=== PATIENT | male | born 1995 | race Caucasian/White ===

== ENCOUNTER 2016-10-12 08:09 | Emergency (ER) | payer OTHER ==
--- NOTE | 2016-10-12 09:26 | ED CLINICAL REPORT ---
Clinical Report - Physicians/Mid Levels [facility] [address] [place] [address] 10/12/2016 8:12 Patient: ADAM PITTMAN Time Seen: 08:53. Arrived- By private vehicle. Historian- patient. HISTORY OF PRESENT ILLNESS Chief Complaint: Injury to the right index finger. The injury happened yesterday. Occurred at work. The patient sustained a puncture wound. (was working yesterday using a crowbar, installing a door, hand slipped and slammed into nail, went through glove). Patient is experiencing moderate pain. Patient denies injury to the head or neck. No other injury. REVIEW OF SYSTEMS The patient sustained a laceration. He has had swelling of the right hand (moderate). He has had new onset of tingling of the right index finger (moderate). No numbness or foreign body. All systems otherwise negative, except as recorded above. PAST HISTORY See nurses notes. PROBLEMS: Gastroenteritis. Sprain. Fractured Phalanx (Finger). Dyspnea. Anxiety Reaction. Asthma. SURGERIES: Appendectomy. The patient's dominant hand is the left. Tetanus immunization status is not up-to-date. Medications: None. Allergies: No Known Drug Allergy. SOCIAL HISTORY Smoker- current status unknown. Occasional alcohol use. ADDITIONAL NOTES The nursing notes have been reviewed. PHYSICAL EXAM Vital Signs: 10/12/2016 08:32 BP: 150/89. HR: 88. RR: 16. O2 saturation: 100%. Temp: 98.3 F. Pain level now: 10. Appearance: Alert. Oriented X3. Anxious. Patient in mild distress. Head: Head atraumatic. Eyes: Eyes normal inspection. CVS: Normal heart rate and rhythm. Heart sounds normal. Pulses normal. Respiratory: No respiratory distress. Breath sounds normal. Skin: (right index finger puncture). Extremities: Tenderness present (mild swelling, no pus discharge). No warmth, drainage, lymphangitis or fluctuance. Right index finger: moderate tenderness, mild swelling and single puncture wound of the dorsal aspect and proximal phalanx. No erythema, foreign body or deformity. No limitation in movement. Soft tissue tenderness present. Neuro, Vascular and Tendons: Vascular status intact. Decreased light touch sensation over the right index finger. Motor intact. Tendon function intact. Neuro: Oriented X 3. Sensory deficit present. (mild decreased sensation to distal right index finger to light touch). LABS, X-RAYS, AND EKG Rt Hand X-ray: No fracture. Normal alignment. No bony lesion, air in the soft tissue or foreign body. Soft tissues normal. Joint spaces normal. Views: AP, lateral and oblique. Technique: good. The X-rays were interpreted contemporaneously by me. PROGRESS AND PROCEDURES Splint Application: Aluminum-foam volar splint applied to right index finger. Splint applied by tech with direct supervision by the ED physician. Reassessed extremity following splint application. Neurovascular intact. Course of Care: Minimal signs of infection now. Mild decreased sensation of entire index finger to light touch. No fracture or fb on x-ray. I have recommended hand surgery evaluation within next 24 hours. Patient/family counseled. Old medical records ordered. Disposition: Discharged. Condition: stable. CLINICAL IMPRESSION Single deep puncture wound to the right index finger. No puncture wound with foreign body present, infected puncture wound or right fingernail injury. INSTRUCTIONS Apply ice. Elevate affected areas above chest level. Wear aluminum splint until released. Limit use of your right hand until released. Do not work with right hand for three days. Do not work for three days. Warnings: COMPLICATIONS: Complications from this condition include: possible infection and possible injury to a nerve. Future problems may include infection, loss of function and pain. It is important to follow up with a physician for further evaluation and treatment. INFECTION: Watch for signs of infection (increasing heat and redness, pus-like drainage, swelling, or increased pain). Return or see your doctor if these signs occur. TETANUS: You were given a tetanus shot during your visit. Make a note for future reference. GENERAL WARNINGS: Return or contact your physician immediately if your condition worsens or changes unexpectedly, if not improving as expected, or if other problems arise. Prescription Medications: Cephalexin 500mg: take 1 tab orally every 6 hours for 7 days. No refills Bactrim DS 800 mg / 160 mg: Take 1 tablet orally every 12 hours for 7 days. Dispense fourteen (14). No refills. Substitution is permissible. OTC Medications: Acetaminophen (available over the counter): take according to label instructions. Motrin (available over the counter): take according to label instructions. Follow-up: Follow up with your doctor tomorrow. Follow up with a hand surgeon tomorrow. (Electronically signed by Hugo Faustin DO 10/13/2016 7:56)
--- NOTE | 2016-10-12 09:27 | ED NURSING NOTES ---
Clinical Report - Nurses [facility] [address] [place] [address] 10/12/2016 8:12 Patient: ADAM PITTMAN TRIAGE Triage time 08:32. Acuity: LEVEL 4. Chief Complaint: RIGHT UPPER EXTREMITY PAIN, SWELLING and REDNESS. Location of symptoms- right thumb, right 2nd finger and right 3rd finger. 08:43 10/12/16. 08:43 10/12/16. SEPSIS SCREEN: Sepsis Screen. Negative (no infection suspected/documented). MECCA COMA SCORE: Mecca Coma Scale: 15- eyes open spontaneously (4); best verbal response- oriented x 4 (5); best motor response- obeys commands (6). --08:43 Chely Burnett R.N. 08:32 10/12/16. BP: 150/89. HR: 88. RR: 16. O2 saturation: 100% on room air. Temp: 98.3 F. Pain level now: 11/12. --08:43 Chely Burnett R.N. Weight: 90.7 kg stated. Height/Length: 75 inches Per Patient. BMI: 25. Growth Chart Percentile: Weight: 91.7%. Height/Length: 97.3%. --08:39 Chely Burnett R.N. Medications None. --08:36 Chely Burnett R.N. Medication/allergy information source: the patient. --08:43 Chely Burnett R.N. Allergies No Known Drug Allergy. --08:36 Chely Burnett R.N. History Arrived by private vehicle. Historian: patient. 08:43 10/12/16. Injury occurred. This occurred last night. Occurred at work. ( was working yesterday using a crowbar, installing a door, hand slipped and slammed into nail, went through glove). 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 PAST MEDICAL HX: Tetanus immunization status is not up-to-date. Immunizations not up to date. SOCIAL HX: Current every day light tobacco smoker- less than 1/2 a pack per day. Occasional alcohol use; consumes beer occasionally. No infectious disease exposure. ABUSE ASSESSMENT: No report of abuse. FALL RISK ASSESSMENT: Fall risk assessment completed. No fall risk identified. NUTRITIONAL RISK ASSESSMENT: The nutritional risk assessment revealed no deficiencies. FUNCTIONAL ASSESSMENT: Functional assessment: no impairments noted. LEARNING NEEDS ASSESSMENT: The learning needs assessment revealed no barriers. SKIN INTEGRITY ASSESSMENT: Skin integrity risk assessment completed. No skin integrity risk identified. --08:43 Chely Burnett R.N. PROBLEMS: Gastroenteritis. Immunizations. Sprain. Fractured Phalanx (Finger). Tetanus Status. Dyspnea. Anxiety Reaction. Asthma. --08:37 Chely Burnett R.N. ADDITIONAL SURGERIES: Appendectomy. --08:38 Chely Burnett R.N. Assessment 08:43 10/12/16. --08:43 Chely Burnett R.N. Interventions 08:43 10/12/16. 08:43 10/12/16. ID band on patient. To treatment room. --08:43 Chely Burnett R.N. PHYSICAL ASSESSMENT 08:45 10/12/16. Ambulatory to room. GENERAL / NEURO / PSYCH: Oriented X 4. Appears in no acute distress. EXTREMITIES: Dorsal right hand: swelling and single puncture wound. Limited extension of the index finger (index finger with puncture wound). Right thumb: swelling. SKIN: Skin intact. Skin is warm. --08:46 Chely Burnett R.N. NURSING PROGRESS NOTES 08:46 10/12/16. The plan of care for this patient has been created. Patient gowned. Reassurance given. Two patient identifiers checked. Call light placed in reach. Side rails up x 1. Bed placed in lowest position. Brakes of bed on. Brakes of chair on. Patient ready for evaluation- chart flagged and ED physician notified. --08:46 Chely Burnett R.N. 08:54 10/12/2016 TDAP IM 0.5 mL given. (Lot#: [id number], expiration date: 06/09/2018, Mill Control Operator: sanofi pasteur). Given in the left deltoid. Allergies verified and confirmed 5 rights. Vaccine information statement provided to the patient. --08:54 Chely Burnett R.N. 08:55 10/12/16. ( X-ray completed). --08:55 Pratik Bellamy R.N. Wound cleansed. Applied dressing (Ointment applied, 2 x 2s to fingers,alum foam splint applied and and held with coban,). --09:22 Aidee Cabrales, BASSEM Tech1 09:24 10/12/2016 Ancef (CeFAZolin Sodium) IM 1 gm given. Given in the right ventral gluteus. Allergies verified and confirmed 5 rights. --09:24 Pratik Bellamy R.N. 09:40 10/12/2016 Ancef IM Response: no adverse reaction. --09:40 Pratik Bellamy R.N. DISPOSITION / DISCHARGE 09:41 10/12/16. Condition at departure: improved. The goals identified in the patient's plan of care were met. No learning barriers present. Discharge instructions provided and reviewed with the patient. Reviewed warnings. Reviewed medication(s). Treatments reviewed. Reviewed referrals (pt to see PCP tomorrow). The patient was discharged by the physician. He was discharged home and unaccompanied at time of discharge. He left the Emergency Department ambulatory and via private vehicle. Patient driving. FALL RISK ASSESSMENT: Fall risk assessment completed. No fall risk identified. --09:41 Pratik Bellamy R.N. 09:41 10/12/16. BP: 114/70. HR: 80. RR: 12. O2 saturation: 99% on room air. Temp: 98.1 F (oral). --09:41 Pratik Bellamy R.N. 09:41 10/12/16. Departure time: 09:41. --09:42 Pratik Bellamy R.N. Locked/Released at 10/12/2016 9:48 by Pratik Bellamy R.N.
--- NOTE | 2016-10-12 09:27 | ED ORDER SUMMARY ---
..... Patient: ADAM PITTMAN OrderSheet [facility] VisitID: [id number] [place] [address] 21y, M Registration Date/Time: 10/12/2016 ORDER SHEET Weight: 90.7 kg (stated) Allergies: No Known Drug Allergy GENERAL ORDERS: Hand 3 or 4V Right Urgent (08:47 10/12/2016 JSanders R.N. per protocol) (8:55 JBoardley R.N.) (Ack 8:56 LNations ER Tech1) Splint (Finger) (Left) (Index) (Aluminum Foam) (09:07 10/12/2016 Meche LIPSCOMB) (9:10 LNations ER Tech1) Dress Wounds (antibiotic oint) (09:08 10/12/2016 Meche LIPSCOMB) (9:10 LNations ER Tech1) MEDICATION ORDERS: Tdap IM 0.5 mL (per protocol) (08:48 10/12/2016 JSanders R.N. per protocol) (Ack 8:48 JSanders R.N.) (8:54 JSanders R.N.) Ancef IM 1 gm (NOW) (09:06 10/12/2016 Meche LIPSCOMB) (Ack 9:09 JBoardley R.N.) (9:24 JBoardley R.N.) IV FLUIDS: ORDER SHEET NOTES: [Electronically signed by Pratik Bellamy R.N. (09:48 10/12/2016)] [Electronically signed by Hugo Faustin DO (07:56 10/13/2016)] [Electronically locked/signed by Pratik Bellamy R.N. (09:48 10/12/2016)]
--- NOTE | 2016-10-12 09:27 | ED ORDER SUMMARY ---
..... Patient: ADAM PITTMAN OrderSheet [facility] VisitID: [id number] [place] [address] 21y, M Registration Date/Time: 10/12/2016 ORDER SHEET Weight: 90.7 kg (stated) Allergies: No Known Drug Allergy GENERAL ORDERS: Hand 3 or 4V Right Urgent (08:47 10/12/2016 JSanders R.N. per protocol) (8:55 JBoardley R.N.) (Ack 8:56 LNations ER Tech1) Splint (Finger) (Left) (Index) (Aluminum Foam) (09:07 10/12/2016 Meche LIPSCOMB) (9:10 LNations ER Tech1) Dress Wounds (antibiotic oint) (09:08 10/12/2016 Meche LIPSCOMB) (9:10 LNations ER Tech1) MEDICATION ORDERS: Tdap IM 0.5 mL (per protocol) (08:48 10/12/2016 JSanders R.N. per protocol) (Ack 8:48 JSanders R.N.) (8:54 JSanders R.N.) Ancef IM 1 gm (NOW) (09:06 10/12/2016 Meche LIPSCOMB) (Ack 9:09 JBoardley R.N.) (9:24 JBoardley R.N.) IV FLUIDS: ORDER SHEET NOTES: [Electronically signed by Pratik Bellamy R.N. (09:48 10/12/2016)] [Electronically signed by Hugo Faustin DO (07:56 10/13/2016)] [Electronically locked/signed by Pratik Bellamy R.N. (09:48 10/12/2016)]
--- NOTE | 2016-10-12 09:27 | ED NURSING NOTES ---
Clinical Report - Nurses [facility] [address] [place] [address] 10/12/2016 8:12 Patient: ADAM PITTMAN TRIAGE Triage time 08:32. Acuity: LEVEL 4. Chief Complaint: RIGHT UPPER EXTREMITY PAIN, SWELLING and REDNESS. Location of symptoms- right thumb, right 2nd finger and right 3rd finger. 08:43 10/12/16. 08:43 10/12/16. SEPSIS SCREEN: Sepsis Screen. Negative (no infection suspected/documented). MECCA COMA SCORE: Mecca Coma Scale: 15- eyes open spontaneously (4); best verbal response- oriented x 4 (5); best motor response- obeys commands (6). --08:43 Chely Burnett R.N. 08:32 10/12/16. BP: 150/89. HR: 88. RR: 16. O2 saturation: 100% on room air. Temp: 98.3 F. Pain level now: 11/12. --08:43 Chely Burnett R.N. Weight: 90.7 kg stated. Height/Length: 75 inches Per Patient. BMI: 25. Growth Chart Percentile: Weight: 91.7%. Height/Length: 97.3%. --08:39 Chely Burnett R.N. Medications None. --08:36 Chely Burnett R.N. Medication/allergy information source: the patient. --08:43 Chely Burnett R.N. Allergies No Known Drug Allergy. --08:36 Chely Burnett R.N. History Arrived by private vehicle. Historian: patient. 08:43 10/12/16. Injury occurred. This occurred last night. Occurred at work. ( was working yesterday using a crowbar, installing a door, hand slipped and slammed into nail, went through glove). 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 PAST MEDICAL HX: Tetanus immunization status is not up-to-date. Immunizations not up to date. SOCIAL HX: Current every day light tobacco smoker- less than 1/2 a pack per day. Occasional alcohol use; consumes beer occasionally. No infectious disease exposure. ABUSE ASSESSMENT: No report of abuse. FALL RISK ASSESSMENT: Fall risk assessment completed. No fall risk identified. NUTRITIONAL RISK ASSESSMENT: The nutritional risk assessment revealed no deficiencies. FUNCTIONAL ASSESSMENT: Functional assessment: no impairments noted. LEARNING NEEDS ASSESSMENT: The learning needs assessment revealed no barriers. SKIN INTEGRITY ASSESSMENT: Skin integrity risk assessment completed. No skin integrity risk identified. --08:43 Chely Burnett R.N. PROBLEMS: Gastroenteritis. Immunizations. Sprain. Fractured Phalanx (Finger). Tetanus Status. Dyspnea. Anxiety Reaction. Asthma. --08:37 Chely Burnett R.N. ADDITIONAL SURGERIES: Appendectomy. --08:38 Chely Burnett R.N. Assessment 08:43 10/12/16. --08:43 Chely Burnett R.N. Interventions 08:43 10/12/16. 08:43 10/12/16. ID band on patient. To treatment room. --08:43 Chely Burnett R.N. PHYSICAL ASSESSMENT 08:45 10/12/16. Ambulatory to room. GENERAL / NEURO / PSYCH: Oriented X 4. Appears in no acute distress. EXTREMITIES: Dorsal right hand: swelling and single puncture wound. Limited extension of the index finger (index finger with puncture wound). Right thumb: swelling. SKIN: Skin intact. Skin is warm. --08:46 Chely Burnett R.N. NURSING PROGRESS NOTES 08:46 10/12/16. The plan of care for this patient has been created. Patient gowned. Reassurance given. Two patient identifiers checked. Call light placed in reach. Side rails up x 1. Bed placed in lowest position. Brakes of bed on. Brakes of chair on. Patient ready for evaluation- chart flagged and ED physician notified. --08:46 Chely Burnett R.N. 08:54 10/12/2016 TDAP IM 0.5 mL given. (Lot#: [id number], expiration date: 06/09/2018, Tinsmith Apprentice: sanofi pasteur). Given in the left deltoid. Allergies verified and confirmed 5 rights. Vaccine information statement provided to the patient. --08:54 hCely Burnett R.N. 08:55 10/12/16. ( X-ray completed). --08:55 Pratik Bellamy R.N. Wound cleansed. Applied dressing (Ointment applied, 2 x 2s to fingers,alum foam splint applied and and held with coban,). --09:22 Aidee Cabrales, BASSEM Tech1 09:24 10/12/2016 Ancef (CeFAZolin Sodium) IM 1 gm given. Given in the right ventral gluteus. Allergies verified and confirmed 5 rights. --09:24 Pratik Bellamy R.N. 09:40 10/12/2016 Ancef IM Response: no adverse reaction. --09:40 Pratik Bellamy R.N. DISPOSITION / DISCHARGE 09:41 10/12/16. Condition at departure: improved. The goals identified in the patient's plan of care were met. No learning barriers present. Discharge instructions provided and reviewed with the patient. Reviewed warnings. Reviewed medication(s). Treatments reviewed. Reviewed referrals (pt to see PCP tomorrow). The patient was discharged by the physician. He was discharged home and unaccompanied at time of discharge. He left the Emergency Department ambulatory and via private vehicle. Patient driving. FALL RISK ASSESSMENT: Fall risk assessment completed. No fall risk identified. --09:41 Pratik Bellamy R.N. 09:41 10/12/16. BP: 114/70. HR: 80. RR: 12. O2 saturation: 99% on room air. Temp: 98.1 F (oral). --09:41 Pratik Bellamy R.N. 09:41 10/12/16. Departure time: 09:41. --09:42 Pratik Bellamy R.N. Locked/Released at 10/12/2016 9:48 by Pratik Bellamy R.N.
--- NOTE | 2016-10-12 09:29 | DIAGNOSTIC IMAGING REPORT ---
PROCEDURE: XR HAND 3 OR 4 VIEWS - RIGHT INDICATION: PAIN TECHNIQUE: Four views. COMPARISON: None. FINDINGS: No fracture or dislocation. Normal soft tissues without radiopaque foreign bodies. Mild third DIP joint degenerative changes. IMPRESSION: 1. No acute changes
--- NOTE | 2016-10-13 07:57 | ED MED RECONCILIATION SUMMARY ---
Patient: ADAM PITTMAN Medication Reconciliation Report [facility] VisitID: [id number] [address] [place] [address] 21y, M Registration Date/Time: 10/12/2016 Weight: 90.7 kg Height/Length: 75 in. BMI: 25.0 ALLERGIES: No Known Drug Allergy The patient's Home Medications are listed below: NONE. The source(s) of the original Home Medication information: patient The following Medications were given to the patient in the Emergency Department: TDAP [IM] IM 0.5 mL, administered: 10/12/2016 8:54:00 AM Ancef [IM] IM 1 gm, administered: 10/12/2016 9:24:00 AM The following Medications were prescribed to the patient: Acetaminophen (available over the counter): take according to label instructions. -- Hugo Faustin DO Motrin (available over the counter): take according to label instructions. -- Hugo Faustin DO Cephalexin 500mg: take 1 tab orally every 6 hours for 7 days. No refills -- Hugo Faustin DO Bactrim DS 800 mg / 160 mg: Take 1 tablet orally every 12 hours for 7 days. Dispense fourteen (14). No refills. Substitution is permissible. -- Hugo Faustin DO
--- NOTE | 2016-10-13 07:57 | ED MAR SUMMARY ---
..... Medication Administration Record [facility] [address] [place] [address] Patient: ADAM PITTMAN Visit ID: [id number] 21y, M Weight: 90.7 kg Height/Length: 75 in BMI: 25 ALLERGIES: No Known Drug Allergy Given 08:54 10/12/2016 Chely Burnett R.N. Medication Administered: TDAP [IM], Dose: 0.5 mL IM. Medication Ordered: Tdap IM 0.5 mL (per protocol). Given 09:24 10/12/2016 Pratik Bellamy RPeggy Medication Administered: ANCEF [IM] (CEFAZOLIN SODIUM), Dose: 1 gm IM. Medication Ordered: Ancef IM 1 gm (NOW).
--- NOTE | 2016-10-13 07:57 | ED MED RECONCILIATION SUMMARY ---
Patient: ADAM PITTMAN Medication Reconciliation Report [facility] VisitID: [id number] [address] [place] [address] 21y, M Registration Date/Time: 10/12/2016 Weight: 90.7 kg Height/Length: 75 in. BMI: 25.0 ALLERGIES: No Known Drug Allergy The patient's Home Medications are listed below: NONE. The source(s) of the original Home Medication information: patient The following Medications were given to the patient in the Emergency Department: TDAP [IM] IM 0.5 mL, administered: 10/12/2016 8:54:00 AM Ancef [IM] IM 1 gm, administered: 10/12/2016 9:24:00 AM The following Medications were prescribed to the patient: Acetaminophen (available over the counter): take according to label instructions. -- Hugo Faustin DO Motrin (available over the counter): take according to label instructions. -- Hugo Faustin DO Cephalexin 500mg: take 1 tab orally every 6 hours for 7 days. No refills -- Hugo Faustin DO Bactrim DS 800 mg / 160 mg: Take 1 tablet orally every 12 hours for 7 days. Dispense fourteen (14). No refills. Substitution is permissible. -- Hugo Faustin DO
--- NOTE | 2016-10-13 07:57 | ED DISCHARGE INSTRUCTIONS ---
Patient: ADAM PITTMAN General Instructions [facility] VisitID: [id number] [place] [address] 21y, M Registration Date/Time: 10/12/2016 Single deep puncture wound to the right index finger. No puncture wound with foreign body present, infected puncture wound or right fingernail injury. INSTRUCTIONS Apply ice. Elevate affected areas above chest level. Wear aluminum splint until released. Limit use of your right hand until released. Do not work with right hand for three days. Do not work for three days. Warnings: COMPLICATIONS: Complications from this condition include: possible infection and possible injury to a nerve. Future problems may include infection, loss of function and pain. It is important to follow up with a physician for further evaluation and treatment. INFECTION: Watch for signs of infection (increasing heat and redness, pus-like drainage, swelling, or increased pain). Return or see your doctor if these signs occur. TETANUS: You were given a tetanus shot during your visit. Make a note for future reference. GENERAL WARNINGS: Return or contact your physician immediately if your condition worsens or changes unexpectedly, if not improving as expected, or if other problems arise. Prescription Medications: Cephalexin 500mg: take 1 tab orally every 6 hours for 7 days. No refills Bactrim DS 800 mg / 160 mg: Take 1 tablet orally every 12 hours for 7 days. Dispense fourteen (14). No refills. Substitution is permissible. OTC Medications: Acetaminophen (available over the counter): take according to label instructions. Motrin (available over the counter): take according to label instructions. Follow-up: Follow up with your doctor tomorrow. Follow up with a hand surgeon tomorrow. ADDITIONAL INFORMATION Puncture Wound (General) A puncture wound is a hole through the skin. Bacteria, dirt and debris can be drawn into this wound, increasing the risk of infection. However, antibiotics are usually not prescribed for this injury unless signs of infection are already present. Therefore, it is important to observe the wound closely for the signs of infection listed below. Home Care: If your wound is on an arm, hand, leg, or foot, keep that part raised during the first 48 hours to reduce swelling and pain. Keep the wound clean and dry. If a bandage was applied and it becomes wet or dirty, replace it. Otherwise, leave it in place for the next 24 hours. You may use acetaminophen (Tylenol) or ibuprofen (Motrin, Advil) to control pain, unless another medicine was prescribed. [NOTE: If you have chronic liver or kidney disease or ever had a stomach ulcer or GI bleeding, talk with your doctor before using these medicines.] You may shower as usual. However, do not soak the area in water (no baths or swimming) during the first 48 hours. Follow Up: Most puncture wounds heal within 10 days. However, an infection may sometimes occur despite proper treatment. If small particles were drawn into the puncture wound (such as fragments of cloth, rubber, wood or dirt), an infection may occur. These fragments are very hard to find during the first exam since it is not possible to get a good look inside a puncture wound and they do not show on an X-ray. Antibiotics and a minor surgical procedure to find and remove the foreign object will be needed if this happens. Therefore, check the wound daily for the warning signs listed below. Get Prompt Medical Attention if any of the following occur: SIGNS OF INFECTION: Increasing pain in the wound Redness, swelling, pus or red lines coming from the wound Fever of 100.4F (38C) or higher, or as directed by your healthcare provider Cephalexin Monohydrate Oral tablet What is this medicine? CEPHALEXIN (sef a NINA in) is a cephalosporin antibiotic. It is used to treat certain kinds of bacterial infections It will not work for colds, flu, or other viral infections. How should I use this medicine? Take this medicine by mouth with a full glass of water. Follow the directions on the prescription label. This medicine can be taken with or without food. Take your medicine at regular intervals. Do not take your medicine more often than directed. Take all of your medicine as directed even if you think you are better. Do not skip doses or stop your medicine early. Talk to your negative restorer regarding the use of this medicine in children. While this drug may be prescribed for selected conditions, precautions do apply. What side effects may I notice from receiving this medicine? Side effects that you should report to your doctor or health menagerie caretaker as soon as possible: allergic reactions like skin rash, itching or hives, swelling of the face, lips, or tongue breathing problems pain or trouble passing urine redness, blistering, peeling or loosening of the skin, including inside the mouth severe or watery diarrhea unusually weak or tired yellowing of the eyes, skin Side effects that usually do not require medical attention (report to your doctor or health menagerie caretaker if they continue or are bothersome): gas or heartburn genital or anal irritation headache joint or muscle pain nausea, vomiting What may interact with this medicine? probenecid some other antibiotics What if I miss a dose? If you miss a dose, take it as soon as you can. If it is almost time for your next dose, take only that dose. Do not take double or extra doses. There should be at least 4 to 6 hours between doses. Where should I keep my medicine? Keep out of the reach of children. Store at room temperature between 59 and 86 degrees F (15 and 30 degrees C). Throw away any unused medicine after the expiration date. What should I tell my health care provider before I take this medicine? They need to know if you have any of these conditions: kidney disease stomach or intestine problems, especially colitis an unusual or allergic reaction to cephalexin, other cephalosporins, penicillins, other antibiotics, medicines, foods, dyes or preservatives or trying to get breast-feeding What should I watch for while using this medicine? Tell your doctor or health menagerie caretaker if your symptoms do not begin to improve in a few days. Do not treat diarrhea with over the counter products. Contact your doctor if you have diarrhea that lasts more than 2 days or if it is severe and watery. If you have diabetes, you may get a false-positive result for sugar in your urine. Check with your doctor or health menagerie caretaker. Sulfamethoxazole, Trimethoprim Oral tablet What is this medicine? SULFAMETHOXAZOLE; TRIMETHOPRIM or SMX-TMP (suhl fuh meth OK jaron zohl; trye METH oh prim) is a combination of a sulfonamide antibiotic and a second antibiotic, trimethoprim. It is used to treat or prevent certain kinds of bacterial infections. It will not work for colds, flu, or other viral infections. How should I use this medicine? Take this medicine by mouth with a full glass of water. Follow the directions on the prescription label. Take your medicine at regular intervals. Do not take it more often than directed. Do not skip doses or stop your medicine early. Talk to your negative restorer regarding the use of this medicine in children. Special care may be needed. This medicine has been used in children as young as 2 months of age. What side effects may I notice from receiving this medicine? Side effects that you should report to your doctor or health menagerie caretaker as soon as possible: allergic reactions like skin rash or hives, swelling of the face, lips, or tongue breathing problems fever or chills, sore throat irregular heartbeat, chest pain joint or muscle pain pain or difficulty passing urine red pinpoint spots on skin redness, blistering, peeling or loosening of the skin, including inside the mouth unusual bleeding or bruising unusually weak or tired yellowing of the eyes or skin Side effects that usually do not require medical attention (report to your doctor or health menagerie caretaker if they continue or are bothersome): diarrhea dizziness headache loss of appetite nausea, vomiting nervousness What may interact with this medicine? Do not take this medicine with any of the following medications: aminobenzoate potassium dofetilide metronidazole This medicine may also interact with the following medications: PIPO inhibitors like benazepril, enalapril, lisinopril, and ramipril cyclosporine digoxin diuretics indomethacin medicines for diabetes methenamine methotrexate phenytoin potassium supplements pyrimethamine sulfinpyrazone tricyclic antidepressants warfarin What if I miss a dose? If you miss a dose, take it as soon as you can. If it is almost time for your next dose, take only that dose. Do not take double or extra doses. Where should I keep my medicine? Keep out of the reach of children. Store at room temperature between 20 to 25 degrees C (68 to 77 degrees F). Protect from light. Throw away any unused medicine after the expiration date. What should I tell my health care provider before I take this medicine? They need to know if you have any of these conditions: anemia asthma being treated with anticonvulsants if you frequently drink alcohol containing drinks kidney disease liver disease low level of folic acid or [id number] dehydrogenase poor nutrition or malabsorption porphyria severe allergies thyroid disorder an unusual or allergic reaction to sulfamethoxazole, trimethoprim, sulfa drugs, other medicines, foods, dyes, or preservatives or trying to get breast-feeding What should I watch for while using this medicine? Tell your doctor or health menagerie caretaker if your symptoms do not improve. Drink several glasses of water a day to reduce the risk of kidney problems. Do not treat diarrhea with over the counter products. Contact your doctor if you have diarrhea that lasts more than 2 days or if it is severe and watery. This medicine can make you more sensitive to the sun. Keep out of the sun. If you cannot avoid being in the sun, wear protective clothing and use a sunscreen. Do not use sun lamps or tanning beds/booths. Acetaminophen Oral tablet What is this medicine? ACETAMINOPHEN (a set a ISMAEL darin fen) is a pain reliever. It is used to treat mild pain and fever. How should I use this medicine? Take this medicine by mouth with a glass of water. Follow the directions on the package or prescription label. Take your medicine at regular intervals. Do not take your medicine more often than directed. Talk to your negative restorer regarding the use of this medicine in children. While this drug may be prescribed for children as young as 6 years of age for selected conditions, precautions do apply. What side effects may I notice from receiving this medicine? Side effects that you should report to your doctor or health menagerie caretaker as soon as possible: allergic reactions like skin rash, itching or hives, swelling of the face, lips, or tongue breathing problems fever or sore throat redness, blistering, peeling or loosening of the skin, including inside the mouth trouble passing urine or change in the amount of urine unusual bleeding or bruising unusually weak or tired yellowing of the eyes or skin Side effects that usually do not require medical attention (report to your doctor or health menagerie caretaker if they continue or are bothersome): headache nausea, stomach upset What may interact with this medicine? alcohol imatinib isoniazid other medicines with acetaminophen What if I miss a dose? If you miss a dose, take it as soon as you can. If it is almost time for your next dose, take only that dose. Do not take double or extra doses. Where should I keep my medicine? Keep out of reach of children. Store at room temperature between 20 and 25 degrees C (68 and 77 degrees F). Protect from moisture and heat. Throw away any unused medicine after the expiration date. What should I tell my health care provider before I take this medicine? They need to know if you have any of these conditions: if you frequently drink alcohol containing drinks liver disease an unusual or allergic reaction to acetaminophen, other medicines, foods, dyes or preservatives or trying to get breast-feeding What should I watch for while using this medicine? Tell your doctor or health menagerie caretaker if the pain lasts more than 10 days (5 days for children), if it gets worse, or if there is a new or different kind of pain. Also, check with your doctor if a fever lasts for more than 3 days. Do not take other medicines that contain acetaminophen with this medicine. Always read labels carefully. If you have questions, ask your doctor or pharmacist. If you take too much acetaminophen get medical help right away. Too much acetaminophen can be very dangerous and cause liver damage. Even if you do not have symptoms, it is important to get help right away. Ibuprofen Oral tablet What is this medicine? IBUPROFEN (eye BYOO proe fen) is a non-steroidal anti-inflammatory drug (NSAID). It is used for dental pain, fever, headaches or migraines, osteoarthritis, rheumatoid arthritis, or painful monthly periods. It can also relieve minor aches and pains caused by a cold, flu, or sore throat. How should I use this medicine? Take this medicine by mouth with a glass of water. Follow the directions on the prescription label. Take this medicine with food if your stomach gets upset. Try to not lie down for at least 10 minutes after you take the medicine. Take your medicine at regular intervals. Do not take your medicine more often than directed. A special MedGuide will be given to you by the pharmacist with each prescription and refill. Be sure to read this information carefully each time. Talk to your negative restorer regarding the use of this medicine in children. Special care may be needed. What side effects may I notice from receiving this medicine? Side effects that you should report to your doctor or health menagerie caretaker as soon as possible: allergic reactions like skin rash, itching or hives, swelling of the face, lips, or tongue black or bloody stools, blood in the urine or in vomit breathing problems changes in vision chest pain general ill feeling or flu-like symptoms nausea or vomiting redness, blistering, peeling or loosening of the skin, including inside the mouth slurred speech or weakness on one side of the body stomach pain unexplained weight gain or swelling unusually weak or tired yellowing of eyes or skin Side effects that usually do not require medical attention (report to your doctor or health menagerie caretaker if they continue or are bothersome): constipation or diarrhea dizziness gas or heartburn stomach upset What may interact with this medicine? Do not take this medicine with any of the following medications: cidofovir ketorolac methotrexate pemetrexed This medicine may also interact with the following medications: alcohol aspirin diuretics lithium other drugs for inflammation like prednisone warfarin What if I miss a dose? If you miss a dose, take it as soon as you can. If it is almost time for your next dose, take only that dose. Do not take double or extra doses. Where should I keep my medicine? Keep out of the reach of children. Store at room temperature between 15 and 30 degrees C (59 and 86 degrees F). Keep container tightly closed. Throw away any unused medicine after the expiration date. What should I tell my health care provider before I take this medicine? They need to know if you have any of these conditions: asthma cigarette smoker drink more than 3 alcohol containing drinks a day heart disease or circulation problems such as heart failure or leg edema (fluid retention) high blood pressure kidney disease liver disease stomach bleeding or ulcers an unusual or allergic reaction to ibuprofen, aspirin, other NSAIDS, other medicines, foods, dyes, or preservatives or trying to get breast-feeding What should I watch for while using this medicine? Tell your doctor or healthcare professional if your symptoms do not start to get better or if they get worse. This medicine does not prevent heart attack or stroke. In fact, this medicine may increase the chance of a heart attack or stroke. The chance may increase with longer use of this medicine and in people who have heart disease. If you take aspirin to prevent heart attack or stroke, talk with your doctor or health menagerie caretaker. Do not take other medicines that contain aspirin, ibuprofen, or naproxen with this medicine. Side effects such as stomach upset, nausea, or ulcers may be more likely to occur. Many medicines available without a prescription should not be taken with this medicine. This medicine can cause ulcers and bleeding in the stomach and intestines at any time during treatment. Ulcers and bleeding can happen without warning symptoms and can cause . To reduce your risk, do not smoke cigarettes or drink alcohol while you are taking this medicine. You may get drowsy or dizzy. Do not drive, use machinery, or do anything that needs mental alertness until you know how this medicine affects you. Do not stand or sit up quickly, especially if you are an older patient. This reduces the risk of dizzy or fainting spells. This medicine can cause you to bleed more easily. Try to avoid damage to your teeth and gums when you brush or floss your teeth. You have been given the following additional information: Puncture Wound, General Cephalexin Monohydrate Oral tablet Sulfamethoxazole, Trimethoprim Oral tablet Acetaminophen Oral tablet Ibuprofen Oral tablet Limit use of your right hand until released. Do not work with right hand for three days. Do not work for three days. (Electronically signed by Hugo Faustin DO 10/13/2016 7:56)
--- NOTE | 2016-10-13 07:57 | ED MAR SUMMARY ---
..... Medication Administration Record Former[facility] [address] [place] [address] Patient: ADAM PITTMAN Visit ID: [id number] 21y, M Weight: 90.7 kg Height/Length: 75 in BMI: 25 ALLERGIES: No Known Drug Allergy Given 08:54 10/12/2016 Chely Burnett R.N. Medication Administered: TDAP [IM], Dose: 0.5 mL IM. Medication Ordered: Tdap IM 0.5 mL (per protocol). Given 09:24 10/12/2016 Pratik Bellamy RPeggy Medication Administered: ANCEF [IM] (CEFAZOLIN SODIUM), Dose: 1 gm IM. Medication Ordered: Ancef IM 1 gm (NOW).
== END 2016-10-12 09:41 | disposition home or self-care (01) ==
LOC: ED SRH 08:09
DX: S61.230A Puncture wound without foreign body of right index finger without damage to nail, initial encounter (principal); W45.0XXA Nail entering through skin, initial encounter; W27.8XXA Contact with other nonpowered hand tool, initial encounter; Y93.89 Activity, other specified; Y92.89 Other specified places as the place of occurrence of the external cause; Y99.0 Civilian activity done for income or pay; Z23 Encounter for immunization